=== PATIENT | female | born 1965 | race Caucasian/White ===

== ENCOUNTER 2017-09-20 12:42 | Emergency (ER) | payer OTHER ==
[~2017-09-20] VITALS: Ht 170.2 cm; Wt 113.4 kg
[2017-09-20] MEDS ORDERED: IBUPROFEN 800800 M1 PO (12:56)
[2017-09-20] MEDS ORDERED: PREDNISONE 10 M10 M1 PO (13:04)
[2017-09-20] MEDS ORDERED: TRIAMCINOLONE A80 G2 TOP (13:04)
[2017-09-20 13:10] VITALS: BP 137/94
== END 2017-09-20 13:18 | disposition home or self-care (01) ==
LOC: M.ERS 12:42
DX: L25.5 Unspecified contact dermatitis due to plants, except food (principal)